=== PATIENT | male | born 1990 | race Caucasian/White ===

== ENCOUNTER 2025-02-20 12:49 | Inpatient (IN) | payer OTHER ==
[2025-02-20] MEDS ORDERED: DICYCLOMINE HCL 10 MG CAPSULE PO PRN (13:25)
[2025-02-20] MEDS ORDERED: IBUPROFEN 400 MG TABLET (FP) PO PRN (13:25)
[2025-02-20] MEDS ORDERED: BENZONATATE 200 MG CAPSULE PO PRN (13:25)
[2025-02-20] MEDS ORDERED: MAG HYDROX/AL HYDROX/SIMETH 30 ML UNIT-DOSE CUP PO PRN (13:25)
[2025-02-20] MEDS ORDERED: POLYETHYLENE GLYCOL (HEALTHYLAX) 3350 17 GM PACKET PO PRN (13:25)
[2025-02-20] MEDS ORDERED: BENZOCAINE/MENTHOL (CHLORASEPTIC ) LOZENGE MM PRN (13:25)
[2025-02-20] MEDS ORDERED: MAGNESIUM HYDROX 2400MG/30ML ORAL SUSPENSION 30 ML CUP PO PRN (13:25)
[2025-02-20] MEDS ORDERED: LOPERAMIDE HCL 2 MG CAPSULE PO PRN (13:25)
[2025-02-20] MEDS ORDERED: NALOXONE (NARCAN) HCL 4 MG/0.1 ML SPRAY NS PRN (13:25)
[2025-02-20] MEDS ORDERED: IBUPROFEN 600 MG TABLET (FP) PO PRN (13:25)
[2025-02-20] MEDS ORDERED: ACETAMINOPHEN 325 MG TABLET (FP) PO PRN (13:25)
[2025-02-20] MEDS ORDERED: guaiFENesin 600 MG TABLET.ER (FP) PO PRN (13:25)
[2025-02-20] MEDS ORDERED: ONDANSETRON *ODT* 4 MG TABLET SL PRN (13:25)
[2025-02-20] MEDS ORDERED: BISMUTH SUBSALICYLATE 524 MG/30 ML PO PRN (13:25)
[2025-02-20] MEDS ORDERED: levETIRAcetam 500 MG TABLET (FP) PO ONE (13:44)
[2025-02-20] MEDS: levETIRAcetam 500 MG TABLET (FP) PO SCH (13:55)
[2025-02-20 15:06] VITALS: BMI 17.7
[2025-02-20] MEDS: THIAMINE 100 MG TABLET PO SCH (22:16)
[2025-02-20] MEDS: MELATONIN 5 MG TABLETS PO SCH (22:16)
[2025-02-21 09:15] LABS: MCHC 32.8 g/dl (32.3-36.5); MEAN CELL VOLUME 88.1 fl (79.0-92.2); MEAN PLT VOLUME 11.2 fl (9.4-12.4); RDW 14.6 % (12.0-15.6)
[2025-02-21] MEDS: PRENATAL VITAMINS W/ FOLIC ACID TABLET (FP) PO SCH (10:16)
[2025-02-21 10:18] LABS: GLUCOSE,RANDOM 93 mg/dL (74-106); TOT PROT 6.6 g/dl (6.4-8.2)
[2025-02-21 10:19] LABS: CO2 27 mmol/L (21-32)
[2025-02-21 10:21] LABS: ALK PHOS 52 U/L (40-150)
[2025-02-21 10:24] LABS: CREATININE 0.89 mg/dL (0.55-1.3); SGOT/AST 65 U/L (5-34); SGPT/ALT 78 U/L (0-55)
[2025-02-21] MEDS: PNEUMOC 20-VAL CONJ-DIP CRM/PF 0.5 ML SYRINGE IM ONE (12:33)
[2025-02-21] MEDS: FLU VACC TS2025-26(6MOS UP)/PF 45 MCG/0.5 ML SYRINGE IM ONE (12:34)
[2025-02-21] MEDS: hydrOXYzine PAMOATE 25 MG CAPSULE (FP) PO PRN (22:15)
[2025-02-23] MEDS: METHOCARBAMOL 500 MG TABLET PO PRN (21:56)
[2025-02-24 09:51] VITALS: BP 114/79; TEMP 97.5
[2025-02-24 12:50] VITALS: PULSE 104; RESP 16
== END 2025-02-24 09:31 | disposition home or self-care (01) | DRG 775 ==
LOC: YASAS 12:49 → Y3N 13:56
PROVIDERS: ADMIT Neuromusculoskeletal Medicine & OMM; ATTEND Counselor Addiction (Substance Use Disorder)
PROC: HZ2ZZZZ Detoxification Services for Substance Abuse Treatment (ICD-10-PCS; principal; 2025-02-20)
DX: F10.230 Alcohol dependence with withdrawal, uncomplicated (principal); F41.9 Anxiety disorder, unspecified; M54.50 Low back pain, unspecified; G89.29 Other chronic pain; Z87.891 Personal history of nicotine dependence
CPT/HCPCS: 36415; 80053; 80307; 85027; 86780; 90656; 90677; 93005; 93010